=== PATIENT | male | born 1960 | race Caucasian/White ===

== ENCOUNTER 2022-12-20 08:00 | Day surgery (SDC) | payer MEDICAID ==
[~2022-12-20] VITALS: Ht 180.3 cm; Wt 74.8 kg
[2022-12-20 11:26] VITALS: BP_SYST 124
== END 2022-12-20 10:40 | disposition home or self-care (01) ==
LOC: SDS 08:00 → SMU 08:01 → SDS 10:40
PROVIDERS: ATTEND Internal Medicine
DX: Z12.11 Encounter for screening for malignant neoplasm of colon (principal); K57.30 Diverticulosis of large intestine without perforation or abscess without bleeding; K64.8 Other hemorrhoids; I10 Essential (primary) hypertension; E78.5 Hyperlipidemia, unspecified; Z98.890 Other specified postprocedural states; Z79.899 Other long term (current) drug therapy
CPT/HCPCS: 45378